=== PATIENT | female | born 1990 | race African-American/Black ===

== ENCOUNTER 2021-09-07 10:35 | Inpatient (IN) | payer BC ==
[2021-09-07] MEDS ORDERED: ELECTROLYTE-148 SOLN 1,000 ML IV SCH ×2 (11:30→12:00)
[2021-09-07] MEDS ORDERED: CITRIC ACID/SODIUM CITRATE 30 ML UNIT-DOSE CUP PO ONE (11:30)
[2021-09-07 11:33] VITALS: BMI 35.4
[2021-09-07] MEDS ORDERED: morphine SULFATE/PF 1 MG/2 ML (2cc Syringe - QUVA) EP ONE (13:04)
[2021-09-07] MEDS ORDERED: ONDANSETRON 4 MG/2 ML VIAL IVPUSH PRN (13:04)
[2021-09-07] MEDS ORDERED: IBUPROFEN 600 MG TABLET (FP) PO PRN (13:04)
[2021-09-07] MEDS ORDERED: ACETAMINOPHEN 325 MG TABLET (FP) PO PRN ×2 (13:04→14:49)
[2021-09-07] MEDS ORDERED: morphine SULFATE/PF 1 MG/2 ML (2cc Syringe - QUVA) ONE (13:14)
[2021-09-07] MEDS ORDERED: ePHEDrine SULFATE 50 MG/1 ML AMPULE ONE (13:16)
[2021-09-07] MEDS ORDERED: SODIUM CHLORIDE 0.9% P/F 10 ML VIAL IJ ONE (13:17)
[2021-09-07] MEDS ORDERED: ceFAZolin SODIUM 1 GM VIAL ONE (13:17)
[2021-09-07] MEDS ORDERED: KETOROLAC TROMETHAMINE 30 MG/1 ML VIAL ONE (14:06)
[2021-09-07] MEDS ORDERED: ONDANSETRON 4 MG/2 ML VIAL ONE (14:06)
[2021-09-07] MEDS ORDERED: ERYTHROMYCIN 0.5% OPHTHALMIC OINTMENT 3.5 GM TUBE OU ONE (14:15)
[2021-09-07] MEDS ORDERED: PHYTONADIONE NEONATAL 1 MG/0.5 ML AMP IM ONE (14:15)
[2021-09-07] MEDS ORDERED: OXYTOCIN 10 UNITS/ML VIAL ONE (14:18)
[2021-09-07] MEDS ORDERED: IBUPROFEN 800 MG/8 ML IJ IVPB PRN (14:49)
[2021-09-07] MEDS ORDERED: METHYLERGONOVINE MALEATE 0.2 MG/1 ML AMP IM PRN (14:49)
[2021-09-07] MEDS ORDERED: OXYTOCIN 20 UNITS in 0.9% NS 20 UNIT/1,000 ML INFUS.BAG IV ONE (15:53)
[2021-09-07] MEDS: OXYTOCIN 20 UNITS in 0.9% NS 20 UNIT/1,000 ML INFUS.BAG IV SCH ×2 (15:55→23:36)
[2021-09-08] MEDS ORDERED: oxyCODONE HCL 5 MG TABLET PO PRN ×2 (02:49)
[2021-09-08] MEDS: IBUPROFEN 600 MG TABLET (FP) PO PRN ×3 (06:15→21:33)
[2021-09-08] MEDS: SIMETHICONE 80 MG TAB.CHEW (FP) PO PRN ×3 (06:16→21:33)
[2021-09-08 08:46] LABS: BASO % 0.2 % (0-2.0); EOS % 0.3 % (0-4.5); HEMATOCRIT 38.1 % (32.4-45.2); HEMOGLOBIN 12.9 GM/dL (10.7-15.3); LYMPH % 11.9 % (8-40); MCH 32.1 pg (25.7-33.7); MCHC 33.9 g/dl (32.0-36.0); MEAN CELL VOLUME 94.9 fl (80-96); MEAN PLT VOLUME 9.5 fl (7.5-11.1); MONO % 8.3 % (3.8-10.2); NEUT % 79.3 % (42.8-82.8); PLATELET COUNT 159 10^3/uL (134-434); RBC 4.02 M/mm3 (3.60-5.2); RDW 12.9 % (11.6-15.6); WHITE BLOOD COUNT 12.9 K/mm3 (4.0-10.0)
[2021-09-08] MEDS: PRENATAL VITAMINS W/ FOLIC ACID TABLET (FP) PO SCH (09:38)
[2021-09-08] MEDS ORDERED: BISACODYL 10 MG SUPP.RECT RC PRN (14:49)
[2021-09-08] MEDS: SENNOSIDES/DOCUSATE COMBO (SENNA PLUS) TABLET (UD) PO PRN (21:33)
[2021-09-09] MEDS: SIMETHICONE 80 MG TAB.CHEW (FP) PO PRN ×4 (03:53→20:49)
[2021-09-09] MEDS: IBUPROFEN 600 MG TABLET (FP) PO PRN ×4 (03:53→20:49)
[2021-09-09] MEDS: PRENATAL VITAMINS W/ FOLIC ACID TABLET (FP) PO SCH (10:18)
[2021-09-09] MEDS: SENNOSIDES/DOCUSATE COMBO (SENNA PLUS) TABLET (UD) PO PRN (20:49)
[2021-09-10] MEDS: SIMETHICONE 80 MG TAB.CHEW (FP) PO PRN (03:46)
[2021-09-10] MEDS: IBUPROFEN 600 MG TABLET (FP) PO PRN (03:46)
[2021-09-10 09:32] VITALS: BP 108/60; PULSE 76; TEMP 98.8
[2021-09-10] MEDS: PRENATAL VITAMINS W/ FOLIC ACID TABLET (FP) PO SCH (10:00)
== END 2021-09-10 13:20 | disposition home or self-care (01) | DRG 788 ==
LOC: JLDR 10:35 → J3W 16:20
PROVIDERS: ADMIT Obstetrics & Gynecology; ATTEND Obstetrics & Gynecology
PROC: 10D00Z1 Extraction of Products of Conception, Low, Open Approach (ICD-10-PCS; principal; 2021-09-07)
DX: O82 Encounter for cesarean delivery without indication (principal); O34.211 Maternal care for low transverse scar from previous cesarean delivery; Z3A.39 39 weeks gestation of pregnancy; Z37.0 Single live birth
CPT/HCPCS: 36415; 85025; 88307-TC